=== PATIENT | female | born 1955 | race Caucasian/White ===

== ENCOUNTER → 2021-02-27 | Outpatient (CLI) | payer MEDICARE ==
[~2021-02-27] MED LIST: METHACHOLINE KIT (J7674) INH ONE
--- NOTE | 2021-02-27 09:24 | PFTRPT ---
Site: [facility], [address] [place], [address] ID: [id number] Name: LOGAN URIAS Visit Date: 02/27/2021 Second ID: [id number] Referring Doctor: Laura Menchaca Reviewing Doctor: Sebastien Shields MD Visitor Use Assistant: Bao CEJA RRT Age: 65 : 1955 Sex: Female Race: Height: 64.00 Inches Weight: 120.00 Lbs BSA: 1.57 Order IDs: [id number] Requested Test(s): <RESP-PFT.PFT> Diagnosis: R05 test meet the ATS standards for acceptability and repeatability. Review Status: Not Reviewed Pre-Bronch Post-Bronch Pred Actual %Pred Actual %Chng SPIROMETRY FVC (L) 3.08 3.30 107 FEV1 (L) 2.34 2.57 109 FEV1/FVC (%) 76 78 102 FEF 25% (L/sec) 4.80 7.94 165 FEF 50% (L/sec) 3.41 3.40 99 FEF 75% (L/sec) 1.04 0.61 58 FEF 25-75% (L/sec) 2.02 2.18 107 FEF Max (L/sec) 5.83 8.23 141 FIVC (L) 2.85 FIF 50% (L/sec) 3.11 3.95 126 FIF Max (L/sec) 4.15 MVV (L/min) 87 121 138 Expiratory Time (sec) 6.04 Back Extrap Vol (L) 0.12 Time To FEFmax (sec) 0.083 LUNG VOLUMES SVC (L) 2.91 3.23 111 IC (L) 2.17 2.25 103 ERV (L) 0.74 0.98 132 TGV (L) 2.88 3.61 125 RV (Pleth) (L) 2.14 2.64 123 TLC (Pleth) (L) 5.05 5.87 116 RV/TLC (Pleth) (%) 42 45 106 DIFFUSION DLCOunc (ml/min/mmHg) 20.79 19.86 95 DLCOcor (ml/min/mmHg) 20.79 19.39 93 DL/VA (ml/min/mmHg/L) 4.12 3.75 90 VA (L) 5.05 5.18 102 BHT (sec) 10.10 IVC (L) 2.99 TLC (SB) (L) 5.33 AIRWAYS RESISTANCE Raw (cmH2O/L/s) 1.86 0.84 45 Gaw (L/s/cmH2O) 1.03 1.25 120 sRaw (cmH2O*s) 4.76 3.07 64 sGaw (1/cmH2O*s) 0.20 0.34 170 BLOOD GASES Hgb (gm/dL) 14.2
--- NOTE | 2021-02-27 10:06 | PFTRPT ---
Site: [facility], [address] [place], [address] ID: [id number] Name: LOGAN URIAS Visit Date: 02/27/2021 Second ID: [id number] Referring Doctor: Laura Menchaca Reviewing Doctor: Sebastien Shields MD Superintendent General: Bao CEJA RRT Age: 65 : 1955 Sex: Female Race: Height: 64.00 Inches Weight: 120.00 Lbs BSA: 1.57 Order IDs: [id number] Requested Test(s): <RESP-PFT.METH CHAL> Diagnosis: R05 of albuterol for post bronchodilator. Review Status: Not Reviewed Pre-Bronch Post-Bronch Pred Actual %Pred Actual %Chng SPIROMETRY FVC (L) 3.08 3.29 106 3.30 FEV1 (L) 2.34 2.59 110 2.50 -3 FEV1/FVC (%) 76 79 103 76 -3 FEF 25% (L/sec) 4.80 7.30 152 6.82 -6 FEF 50% (L/sec) 3.41 3.57 104 3.06 -14 FEF 75% (L/sec) 1.04 0.73 70 0.68 -7 FEF 25-75% (L/sec) 2.02 2.38 117 2.00 -15 FEF Max (L/sec) 5.83 7.61 130 6.97 -8 FIVC (L) 3.26 3.10 -5 FIF 50% (L/sec) 3.11 4.86 156 4.12 -15 FIF Max (L/sec) 4.86 4.13 -15 Expiratory Time (sec) 6.37 6.46 1 Back Extrap Vol (L) 0.12 0.12 -1 Time To FEFmax (sec) 0.088 0.101 15
== END ==
LOC: M CARPUL 08:37
PROVIDERS: ATTEND Nurse Practitioner Adult Health
DX: R05 Cough (principal)
CPT/HCPCS: 88738; 94010; 94070; 94726; 94729; 95070; J7674